=== PATIENT | female | born 1985 | race Caucasian/White ===

== ENCOUNTER 2017-06-24 07:05 | Inpatient (IN) | payer OTHER ==
[~2017-06-24] VITALS: Ht 157.5 cm; Wt 92.0 kg
[~2017-06-24 07:05] MED LIST: ZOFRAN ODT4 MG; ZOFRAN ODT4 MG PO
--- NOTE | 2017-06-26 09:06 | PR ---
[facility] [address] [facility] [place], [place] [address] Signed PP Progress Notes Datetime Report Generated by CPAna: 06/26/2017 09:06 SUBJECTIVE: [id number] Pain: Within normal limits Nausea/Vomiting: Denies Flatus: Yes Bowel Movement: No Vital Signs: [id number] Vital Signs: Reviewed; Within Normal Limits EXAM: [id number] Cardiovascular: Not Done Respiratory: Not Done Abdomen/Uterus: Abnormal Lochia: Normal Vulva/Perineum: Not Done Breasts: Not Done CVA Tenderness: Not Done Extremities: Normal Incision: Not Applicable Progress: Normal Exam Comments: Fundus firm, NT @ U-1. IMPRESSION/PLAN/PROCEDURES: [id number] Impression: Normal progression Plan: Discharge Procedures: None Progress Notes: Doing well. She is ready for D/C. Signing Physician: Ramya Philip MD Copies: ~ *Electronically Signed* 06/26/17 09 RAMYA PHILIP MD PATIENT NAME: JAYE GUTIERREZ PROGRESS NOTE DATE OF : 83 PHYSICIAN: RAMYA PHILIP MD RPT #: [id number] REPORT IS CONFIDENTIAL AND NOT TO BE RELEASED WITHOUT AUTHORIZATION
== END 2017-06-26 16:50 | disposition home or self-care (01) | DRG 775 ==
LOC: FBC 07:05
PROVIDERS: ADMIT Obstetrics & Gynecology
PROC: 10E0XZZ Delivery of Products of Conception, External Approach (ICD-10-PCS; principal; 2017-06-24)
PROC: 10907ZC Drainage of Amniotic Fluid, Therapeutic from Products of Conception, Via Natural or Artificial Opening (ICD-10-PCS; 2017-06-24)
DX: O62.3 Precipitate labor (principal); O99.824 Streptococcus B carrier state complicating childbirth; Z88.0 Allergy status to penicillin; Z3A.39 39 weeks gestation of pregnancy; Z37.0 Single live birth
CPT/HCPCS: 36415; 85027; J0690; J2590; J7120

== ENCOUNTER 2022-11-02 05:09 | Observation (INO) | payer OTHER ==
[~2022-11-02] VITALS: Ht 157.5 cm; Wt 88.0 kg
[2022-11-02] MEDS ORDERED: BUSPIRONE HCL7.5 MG PO (05:27)
[2022-11-02 05:37] LABS: BASOPHILS 0.4 % (0-2); EOSINOPHILS 0.5 % (0-6); HEMATOCRIT 42.1 % (35.0-50.0); HEMOGLOBIN 13.6 g/dL (12.0-18.0); LYMPHOCYTES 12.5 % (24-44); MCH 27.8 (27-36); MCHC 32.2 g/dl (30-36); MCV 86.2 fl (81-99); MONOCYTES 3.8 % (0-12); NEUTROPHILS 82.8 % (39-80); PLATELET COUNT 332 K/uL (140-440); RBC 4.88 M/ul (4.3-5.7)
[2022-11-02 05:57] LABS: ALBUMIN 3.8 g/dL (3.4-5.0); ANION GAP 13.4 (7-21); BILIRUBIN, TOTAL 0.3 ng/dL (0.2-1.0); BUN/CREATININE RATIO 16.66 (6.0-28.6); CALCIUM 8.7 mg/dL (8.5-10.1); CREATININE, SERUM 0.9 mg/dL (0.55-1.02); POTASSIUM 4.4 mmol/L (3.5-5.1); PROTEIN, TOTAL 7.6 g/dL (6.4-8.2)
[2022-11-02 06:34] LABS: BILIRUBIN, URINE NEGATIVE (negative); BLOOD/HGB, URINE NEGATIVE (Negative); KETONE, URINE NEGATIVE (Negative); LEUK ESTERASE, URINE NEGATIVE (negative); NITRITE, URINE NEGATIVE (negative); PH, URINE 7.5 (5-7)
[2022-11-02 07:49] VITALS: BP 106/67
--- NOTE | 2022-11-02 08:45 | NUR ---
PT TO MED-SURG 0750 AFTER BEDSIDE REPORT IN ED. PT IS ALERT AND ORIENTED AT BEDSIDE. PT ORIENTED TO ROOM AND PRE-OP ED PROVIDED. BOTH VERBALIZE UNDERSTANDING AND ALL QUESTIONS ANSWERED.
--- NOTE | 2022-11-02 09:16 | NUR ---
PT RESTING IN BED EYES CLOSED AWAKENS TO VOICE. PRESENT IN ROOM. PT NOTIFIED DR VILLASEÑOR TO BE HERE AROUND 1030 AND SURGERY SOON AFTER. REVIEWED PRE-OP EDUCATION PT DENIES QUESTIONS OR CONCERNS. PT UP TO THE TOILET DOING WIPE DOWN AND PREPARING. PERSONAL CARE ITEMS PROVIDED. LEMON SWABS AT BEDSIDE PT CONTINUES NPO. PT AGREES ABDOMEN IS PAINFUL BUT STATES "IT'S NOT BAD" AGREES TO NOTIFY STAFF OF INCREASED PAIN OR NEEDS
--- NOTE | 2022-11-02 09:46 | NUR ---
PT USES CALL LIGHT APPROPRIATELY REQUESTS PAIN MED FOR 08/24. 1 MG DILAUDID ADMINISTERED. REMAINS IN THE ROOM PT DENIES OTHER NEEDS. SCD'S IN PLACE ORAL CARE ITEMS AT BEDSIDE
--- NOTE | 2022-11-02 11:08 | NUR ---
DR. VILLASEÑOR IN WITH PT AND PTS
--- NOTE | 2022-11-02 11:20 | NUR ---
PT TO O/R VIA BED
--- NOTE | 2022-11-02 13:59 | NUR ---
11/02/22 1359 Jessica Schaefer 1331 PATIENT INTO PACU BAY 5. REPORT RECIEVED FROM GIOVANNY KITCHEN. PATIENT NONREACTIVE. BREATHING EQUAL AND UNLABORED. JAW THRUST PERFORMED. THIS RN AT BEDSIDE. SR ON TELE. 1335 PATIENT NONREACTIVE. PATIENT BREATHING EQUAL AND UNLABORED. JAW THRUST PERFORMED BY THIS RN. SR ON TELE. PATIENT SURGICAL SITE CLEAN, DRY AND INTACT. SCD'S ON. IVF INFUSING. 1340 PATIENT REACTIVE. PATIENT BREATHING EQUAL AND UNLABORED.PATIENT OXYGEN SATURATIONS MAINTAINING ABOVE 90% ON 6 LITERS VIA MASK. SR ON TELE. PATIENT UNABLE TO STATE PAIN. ICE PLACED AT SURGICAL SITE. PILLOW TO SPLINT WITH COUGHING. 1350 PATIENT REACTIVE. PATIENT BREATHING EQUAL AND UNLABORED. PATIENT TITRATED OFF OXYGEN. PATIENT SATURATIONS ABOVE 95% ON ROOM AIR. SR ON TELE. PATIENT STATES "I HAVE A LITTLE BIT OF PAIN". SCD'S ON. IVF INFUSING.
[2022-11-02 14:18] VITALS: BP 119/66
--- NOTE | 2022-11-02 14:19 | NUR ---
PT BACK FROM O/R IS PRESENT IN THE ROOM. BEDSIDE REPORT RECEIVED. PT IS DROWSY BUT ANSWERS TO VOICE. AGREES SHE IS COMFORTABLE. FRESH H20 AT BEDSIDE. CALL LIGHT IN LAP
--- NOTE | 2022-11-02 14:44 | NUR ---
RECEIVED PT REPORT FROM ROLY PATEL AFTER PT ARRIVED FROM SURGERY.
[2022-11-02 15:21] VITALS: BP 103/62
--- NOTE | 2022-11-02 15:30 | NUR ---
PT RESTING EYES CLOSED BREATHING EVEN AND UNLABORED. RESTING ON THE COUCH. CALL LIGHT AND FRESH H20 AT BEDSIDE
--- NOTE | 2022-11-02 15:46 | NUR ---
PT USES CALL LIGHT APPROPRIATELY FOR UP TO THE TOILET. ABLE TO VOID WITHOUT DIFFICULTY. RETURNS TO RESTING IN BED. APPLESAUCE PROVIDED WITH HER NORMAL MEDS AND AN IBUPROFEN. SHE DENIES PAIN AT THIS TIME WHILE SAYING SUPINE IN BED, VERY SORE WITH ACTIVITY OF COURSE. DENIES FURTHER NEEDS AT THIS TIME
--- NOTE | 2022-11-02 15:57 | NUR ---
DISCUSSED WITH PT THAT SHE HAS MET CRITERIA AND CAN DC WHEN SHE FEELS SHE IS READY. SHE STATES SHE DOESN'T FEEL LIKE IT NOW. ENCOURAGED HER TO REST FOR A TIME AND USE CALL LIGHT IF SHE FEELS SHE NEEDS ANYTHING. NO HURRY TO DC. TOLD HER SUPPER IS AT 5 AND IF SHE WANTS ANYTHING FURTHER JUST LET US KNOW.
--- NOTE | 2022-11-02 16:04 | NUR ---
PATIENT CALLED NEEDED TO USE THE BATHROOM. FIRST TIME GETTING UP TO THE BATHROOM. UNHOOKED HER FROM HER SCDS. WALKED IN THE BATHROOM WITH HER. PATIENT IS BACK IN BED HOOKED BACK UP TO HER SCDS. AND ALL HER BLANKETS.
[2022-11-02 16:22] VITALS: BP 114/58
--- NOTE | 2022-11-02 16:50 | NUR ---
RECEIVED PHONE CALL FROM PT, REQUESTED AND RECEIVED TIME SHE HAD LAST TAKEN IBUPROFEN, WELL TYENOL.
[2022-11-02] MEDS ORDERED: LEVOFLOXACIN500 MG PO (17:18)
[2022-11-02] MEDS ORDERED: HYDROCODON-ACE1 EAC8 PO (17:18)
[2022-11-02] MEDS ORDERED: METRONIDAZOLE250 MG PO (17:21)
[2022-11-02 17:23] VITALS: BP 107/64
--- NOTE | 2022-11-02 17:25 | NUR ---
PT ASLEEP IN BED, HOB ELEVATED, AWAKENS EASILY. DENIES ANY PAIN OR NAUSEA AT THIS TIME. VSS. DENIES NEEDS AT THIS TIME. CALL LIGHT IN REACH.
[2022-11-02 18:11] VITALS: BP 103/59
--- NOTE | 2022-11-02 18:16 | NUR ---
PT RETURNED FROM LAP MARTHA SURGERY AND REMAINED DROWSY BUT EASILY AWAKENED FOR JUST UNDER 4 HOURS. SHE WAS ABLE TO TAKE SIPS OF WATER, ATE APPLESAUCE, AMBULATE WITH SBA TO VOID, VSS, AND IS EATING TOMATO SOUP WITH CRACKERS NOW WITH NO C/O NAUSEA, NO PAIN. SHE RECEIVED 800MG IBUPROFEN AND SCHEDULED BUSPAR. PT'S LEFT TO FILL HER PRESCRIPTION. PT IS A&O X4. 4 LAP SITES DRESSED WITH GAUZE AND SILK TAPE, CDI
--- NOTE | 2022-11-02 18:54 | NUR ---
REVIEWED D/C INSTRUCTIONS AND PAPERWORK WITH PT WHO VERBALIZED UNDERSTANDING. PT OUT OF BED TO VOID. DENIES PAIN, N/V AT THIS TIME.
--- NOTE | 2022-11-02 19:45 | NUR ---
PT DISCHARGED WITH , WHEELED OUT IN W/C PER DECK CADET.
--- NOTE | 2022-11-03 07:08 | CONS ---
[facility] [address] [place], [place] [address] Signed DATE OF CONSULTATION: 11/02/2022 CHIEF COMPLAINT: Right upper quadrant abdominal pain. HISTORY OF PRESENT ILLNESS: Jaye is a 37-year-old, obese female, asked to see me for her right upper quadrant abdominal pain with nausea and vomiting. She has been having trouble for about a year. She has been working closely with her primary care provider. She actually had an ultrasound done in July of this year down in [place], [place]. It showed gallstones, but no other issues. Because of her ongoing symptoms, she had a CT scan of abdomen and pelvis on October 27, 2022 also in [place], [place]. Again, she had gallstones, but no other issues. Last night, she had rather significant right upper quadrant abdominal pain, radiating through to her back. She had nausea and vomiting. She came to our emergency room for evaluation. She was tender in the right upper quadrant and her white count was elevated. The rest of her labs were unremarkable. We did not repeat the radiographic studies. I had been called this morning to admit her as a general surgeon on-call. In the meantime, she has received pain control and antibiotics to include Rocephin and Flagyl. She is now in her hospital bed with her in the room along with our nurse. She seems to be doing fine. PAST MEDICAL HISTORY: 1. Anxiety. 2. Depression. 3. Toe and finger fractures from sports and her horse. PAST SURGICAL HISTORY: None. SOCIAL HISTORY: She does not smoke. She has a drink once in a while. She has braces on her teeth. Her sister is Elizabeth at [phone]. Her is Elias at [phone]. She works at the [employer] office. She has four children, all born vaginally. Hailey Welch is her primary care provider. She prefers the [facility] here in [place], [place]. FAMILY HISTORY: Mom had diabetes. REVIEW OF SYSTEMS: She had 10 systems reviewed and she mentioned her toe and finger fractures. ALLERGIES: Electronically Signed By: ROCIO VILLASEÑOR MD 11/03/22 0708 PATIENT NAME: JAYE GUERRERO CONSULTATION DATE OF : 83 REPORT #: [id number] PHYSICIAN: ROCIO VILLASEÑOR MD PCP: HAILEY WELCH PA-C REPORT IS CONFIDENTIAL AND NOT TO BE RELEASED WITHOUT AUTHORIZATION [facility] [address] [place], [place] [address] Signed Bactrim and amoxicillin. MEDICATIONS: Buspirone. PHYSICAL EXAMINATION: VITAL SIGNS: Her blood pressure is 106/67, heart rate 66, heart rate 16, temperature 97.9. She is 100% on room air. She is 5 feet 2 inches, at 88 kg with a body mass index of 35. GENERAL: Jaye is a 37-year-old female, lying supine semi-recumbent in her hospital bed, watching TV. Her and her nurse are in the room. She does not appear systemically ill or toxic. She is not jaundiced. LUNGS: Clear to auscultation bilaterally. HEART: Regular rate and rhythm without murmurs. ABDOMEN: Obese, but soft. She seems to have some tenderness to deep palpation in the right upper quadrant. LABORATORY DATA: Her white blood count 15, hemoglobin 13, and neutrophils 82. Electrolytes are unremarkable. UA was negative. Beta-hCG negative. Total bilirubin 0.3, AST 20, ALT 22, alkaline phosphatase 73, albumin 3.8, and lipase 81. RADIOGRAPHIC STUDIES: I obtained the reports for the ultrasound in July of this year and the CT scan of abdomen and pelvis from October of this year, both done in [place], [place]. They both showed the gallstones, but otherwise were unremarkable. ASSESSMENT/PLAN: Jaye is a 37-year-old female who presents with what appears to be classic cholelithiasis and biliary colic if not some level of cholecystitis. She has been admitted and started on antibiotics as well as pain control and IV fluids. I brought with myself a brochure from the office that we gave her and she has some literature already from the nurses. We discussed the above findings. We discussed the location and function of the gallbladder. We discussed laparoscopic versus open cholecystectomy. She understands, the expected intraop and postop course. We also reviewed the risk including, but not limited to bleeding, infection, scarring, change in contour of the skin, damage to bowel, damage to main bile duct, incisional hernias and other unforeseen comorbidities. She has expressed understanding and would like to proceed. Rocio Villaseñor MD Electronically Signed By: ROCIO VILLASEÑOR MD 11/03/22 0708 PATIENT NAME: JAYE GUERRERO CONSULTATION DATE OF : 83 REPORT #: [id number] PHYSICIAN: ROCIO VILLASEÑOR MD PCP: HAILEY WELCH PA-C REPORT IS CONFIDENTIAL AND NOT TO BE RELEASED WITHOUT AUTHORIZATION [facility] [address] [place], [place] [address] Signed ALB/MODL /[id number] cc: TAMI Huang Copies: ~ Electronically Signed By: ROCIO VILLASEÑOR MD 11/03/22 0708 PATIENT NAME: JAYE GUERRERO FACUNDO CONSULTATION DATE OF : 83 REPORT #: [id number] PHYSICIAN: ROCIO VILLASEÑOR MD PCP: HAILEY WELCH PA-C REPORT IS CONFIDENTIAL AND NOT TO BE RELEASED WITHOUT AUTHORIZATION
--- NOTE | 2022-11-03 16:37 | OR ---
[facility] [address] [place], [place] [address] Signed DATE OF OPERATION: 11/02/2022 SURGEON: Rocio Villaseñor MD PREOPERATIVE DIAGNOSES: 1. Cholelithiasis with cholecystitis. 2. Biliary colic. POSTOPERATIVE DIAGNOSES: 1. Cholelithiasis with cholecystitis. 2. Biliary colic. PROCEDURE: Laparoscopic cholecystectomy without intraoperative cholangiogram. ESTIMATED BLOOD LOSS: Minimal. FINDINGS: Jaye indeed had moderate to severe acute cholecystitis with cholelithiasis. She had a stone about a centimeter wide by a centimeter and a half long that was impacted in the neck of the gallbladder. Even our circulating nurse had trouble getting the stone out of the neck of the gallbladder. We found she had significant inflammatory changes in the triangle of Calot. We could not move the adipose tissue down more than about a cm on the cystic duct. Consequently, we elected not to use her intraoperative cholangiocatheter. We used that short amount of duct for securing with the PDS Endoloop and the clips. She had significant edema throughout the triangle of Calot and the surrounding fat in the gallbladder wall. We had to have a second nurse scrub in to help and introduce the fan retractor. In the end her procedure was prolonged and difficult based on these issues. INDICATIONS: Jaye is a 37-year-old female who now has four children. 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 However, she lives down in [place], [place] an hour and 20 minutes away. For about a year now, she has been having various abdominal complaints, particularly left upper quadrant abdominal pain. Back in July of this year, she had an ultrasound done by her primary care provider. It showed gallstones. Because of ongoing symptoms, she ended up with a CT scan on October 27, 2022, both performed down at [place], [place]. Again, the gallstones otherwise unremarkable. Last night she had a terrible night and she had pain Electronically Signed By: ROCIO VILLASEÑOR MD 11/03/22 1637 PATIENT NAME: JAYE GUERRERO OPERATIVE REPORT DATE OF : 83 REPORT #: [id number] PHYSICIAN: ROCIO VILLASEÑOR MD PCP: HAILEY WELCH PA-C REPORT IS CONFIDENTIAL AND NOT TO BE RELEASED WITHOUT AUTHORIZATION [facility] [address] [place] [id number] Signed radiating through to her back with nausea and vomiting. She came to our local emergency room for evaluation. She was tender in the right upper quadrant with an elevated white blood cell count. Liver function tests and lipase were all negative. Beta-hCG negative. We did repeat her radiographic studies. I had been asked to admit early this morning as a general surgeon on-call. She was given pain control along with Rocephin and Flagyl. I met with Jaye and her later this morning. I had reviewed with them the above findings. We had reviewed the location and function of the gallbladder. We discussed laparoscopic versus open cholecystectomy. They understand the expected intraop and postop course. We did review the risk including, but not limited to bleeding, infection, scarring, change in contour of the skin, damage to bowel, damage to main bile duct, incisional hernias, and other unforeseen comorbidities. She and her had expressed understanding and wished to proceed. PROCEDURE NOTE: Jaye was taken into our operating room and placed in the supine position under general endotracheal tube anesthesia. She was already on preoperative antibiotics along with subcutaneous Lovenox. SCDs were already in place. She was prepped and draped in the usual sterile fashion. All trocars were placed in usual positions under direct visualization of camera without difficulty. We could easily see the edematous changes in the omentum adherent from the top of the gallbladder all the way down to the triangle of Calot. It took a few minutes to free up the top half of the gallbladder. We had to have an additional nurse scrub in and introduced the fan retractor through the mid epigastric midline to help hold the transverse mesocolon down and out of the way. It took additional slow meticulous dissection to work our way down onto the cystic duct. We put two clips across the cystic artery and it had been divided. We only had about a centimeter of cystic duct that we could expose. The other adipose tissue was indurated and quite adherent. We therefore elected not to perform intraoperative cholangiogram. In addition, we noted there was one stone impacted in the neck of the gallbladder that we could not move out. We then secured the cystic duct stump with a PDS Endoloop and a clip to supa its location. We then slowly and carefully removed the gallbladder from the gallbladder fossa with the help of the cautery and placed into an EndoCatch bag. The area had been irrigated and suctioned out. We used our laparoscopic suturing device to pass 0-Vicryl suture on the subxiphoid in the mid epigastric trocar sites. These were tied down to close the fascia primarily. After this, all the gas was allowed to escape and all the remaining trocars were removed along with the gallbladder. The gallbladder was opened on the back table by our circulating nurse. It actually took some extra time to get the gallbladder open and get the impacted stone out of the neck of the gallbladder. She also has cholesterolosis. We closed the fascia of the supraumbilical trocar site with interrupted simple [id number] 0 Vicryl sutures. Local anesthetic was injected into all trocar sites. Each trocar site was irrigated and suctioned out until clear. We closed the skin and dermis of each trocar site with interrupted 3-0 subcuticular Monocryl sutures. Dry gauze and tape were applied all Electronically Signed By: ROCIO VILLASEÑOR MD 11/03/22 1637 PATIENT NAME: JAYE GUERRERO OPERATIVE REPORT DATE OF : 83 REPORT #: [id number] PHYSICIAN: ROCIO VILLASEÑOR MD PCP: HAILEY WELCH PA-C REPORT IS CONFIDENTIAL AND NOT TO BE RELEASED WITHOUT AUTHORIZATION [address] [address] Signed incisionsDavid Gallagher was awakened from anesthesia, extubated in the OR, and taken to recovery room in stable condition. Rocio Villaseñor MD ALB/MODL /[id number] cc: TAMI Huang MD Copies: ROCIO VILLASEÑOR MD ~ Electronically Signed By: ROCIO VILLASEÑOR MD 11/03/22 1637 PATIENT NAME: JAYE GUERRERO OPERATIVE REPORT DATE OF : 83 REPORT #: [id number] PHYSICIAN: ROCIO VILLASEÑOR MD PCP: HAILEY WELCH PA-C REPORT IS CONFIDENTIAL AND NOT TO BE RELEASED WITHOUT AUTHORIZATION
--- NOTE | 2022-11-06 16:09 | PATH ---
[facility] [address] [facility] [address], [place] [address] Signed SPECIMEN(S): A GALLBLADDER AND STONE SPECIMEN SOURCE: A. GALLBLADDER AND STONE CLINICAL HISTORY: Biliary colic vs. cholecystitis. FINAL PATHOLOGIC DIAGNOSIS: Gallbladder and stone: - Chronic calculous cholecystitis. JVR:[facility] MICROSCOPIC EXAMINATION: Histologic sections of all submitted blocks are examined by light microscopy. These findings, together with the gross examination, support the pathologic diagnosis. GROSS DESCRIPTION: The specimen, labeled and designated "Hutchinson, A" and designated on the requisition "gallbladder and stone," is received in formalin and consists of: Specimen: Previously opened gallbladder. Dimensions: 9.5 x 3.0 x 2.0 cm. Serosa: Ohara-pink smooth. Cystic Duct: Unobstructed, margin inked black and shaved. Calculi: One green ovoid calculus (2.0 x 1.7 x 1.7 cm). Mucosa: Green and velvety. Wall thickness: 0.5 cm. Lymph node: No pericystic lymph nodes are grossly identified. Additional: None. Lab Clerk sections are submitted in (A1). AC (under the direct supervision of a pathologist) The Gross Description was prepared using a voice recognition system. The report was reviewed for accuracy; however, sound-alike word errors, addition and/or deletions may occur. If there is any question about this report, please contact Client Services. PERFORMING LABORATORY: Technical component was performed by [employer], [address] [place] [id number] (CLIA# [id number]). Professional interpretation was performed by [facility] [place], PATIENT NAME: JAYE HUTCHINSON PATHOLOGY DATE OF : 83 REPORT #: [id number] PHYSICIAN: MAN[facility] PATHOLOGY PCP: HAILEY WELCH PA-C REPORT IS CONFIDENTIAL AND NOT TO BE RELEASED WITHOUT AUTHORIZATION [facility] [address] [place], [place] [address] Signed [address], [place] [address] (CLIA#: [id number]). Diagnostician: Sherwin Flowers MD Pathologist Electronically Signed 11/06/2022 Copies: ~ PATIENT NAME: JAYE HUTCHINSON PATHOLOGY DATE OF : 83 REPORT #: [id number] PHYSICIAN: MAN[facility] PATHOLOGY PCP: HAILEY WELCH PA-C REPORT IS CONFIDENTIAL AND NOT TO BE RELEASED WITHOUT AUTHORIZATION
== END 2022-11-02 19:38 | disposition home or self-care (01) ==
LOC: ED 05:09 → MS 05:11
PROVIDERS: Emergency Medicine; ADMIT Colon & Rectal Surgery; ATTEND Colon & Rectal Surgery
PROC: 0FT44ZZ Resection of Gallbladder, Percutaneous Endoscopic Approach (ICD-10-PCS; principal; 2022-11-02 11:30)
DX: K80.64 Calculus of gallbladder and bile duct with chronic cholecystitis without obstruction (principal); Z20.822 Contact with and (suspected) exposure to COVID-19; F41.9 Anxiety disorder, unspecified; F32.A Depression, unspecified; Z88.0 Allergy status to penicillin
CPT/HCPCS: 00790; 36415; 80053; 81003; 83690; 84703; 85025; 96374; 96375; 96376; 99284-25; A9270; C9113; C9803; G0378; J0131; J0696; J1100; J1170; J1650; J1885; J2250; J2405; J2704; J3490; J7030; J7121; U0002